=== PATIENT | female | born 1975 | race Caucasian/White ===

== ENCOUNTER 2019-11-20 16:18 | Outpatient (CLI) | payer OTHER ==
[~2019-11-20 16:18] MED LIST: TYLENOL-CODEINE1 TAB PO
== END 2019-11-20 16:26 | disposition home or self-care (01) ==
LOC: LAB 16:18
PROVIDERS: ATTEND General Practice
DX: J11.1 Influenza due to unidentified influenza virus with other respiratory manifestations (principal); Z11.59 Encounter for screening for other viral diseases; Z20.828 Contact with and (suspected) exposure to other viral communicable diseases; R07.0 Pain in throat

== ENCOUNTER 2020-02-03 20:09 | Day surgery (SDC) | payer OTHER ==
[~2020-02-03] VITALS: Ht 165.1 cm; Wt 59.0 kg
[2020-02-04] MEDS ORDERED: KETO10TA2 PO (18:05)
[2020-02-04] MEDS ORDERED: DOXYCYCLINE HY100 MG PO (18:06)
== END 2020-02-04 21:30 | disposition home or self-care (01) ==
LOC: ER 20:09 → CIR.AMB 02-04 08:03
PROVIDERS: ATTEND Obstetrics & Gynecology
DX: O03.4 Incomplete spontaneous abortion without complication (principal); Z20.828 Contact with and (suspected) exposure to other viral communicable diseases

== ENCOUNTER 2024-07-02 06:51 | Day surgery (SDC) | payer OTHER ==
[2024-06-26 10:02] VITALS: BP 98/64
[2024-06-26 11:23] LABS: RH POSITIVE
[~2024-07-02] VITALS: Ht 167.6 cm; Wt 59.0 kg
[~2024-07-02 06:51] MED LIST changes: +DOXYCYCLINE HY100 MG PO; +KETO10TA2 PO
[2024-07-02] MEDS ORDERED: VISTASEAL DUAL APPICATOR 1 EACH APPL TOP ONE (16:45)
[2024-07-02] MEDS ORDERED: METRONIDAZOLE/SODIUM CHLORIDE 500 MG/100 ML PIGGYBACK IV ONE (16:45)
[2024-07-02] MEDS ORDERED: THROMBIN,HU/FIBRINOGEN/CALCIUM 10 ML SYRINGE TOP ONE (16:45)
[2024-07-02] MEDS ORDERED: CEFAZOLIN SODIUM 1,000 MG VIAL IV ONE (16:45)
[2024-07-02] MEDS ORDERED: MORPHINE SULFATE 4 MG/ML VIAL IV ONE ×2 (18:20→19:50)
[2024-07-02] MEDS ORDERED: KETOROLAC TROMETHAMINE 30 MG VIAL IV STA (21:08)
== END 2024-07-02 21:25 | disposition home or self-care (01) ==
LOC: CIR.AMB 06:51
PROVIDERS: ATTEND Obstetrics & Gynecology Gynecologic Oncology
DX: D27.1 Benign neoplasm of left ovary (principal)